=== PATIENT | female | born 1945 | race Caucasian/White ===

== ENCOUNTER → 2022-10-03 11:12 | Outpatient (BNVA) | payer MEDICARE, MEDICAID, SELFPAY | PROVIDERS: PCP Internal Medicine; Visit Provider Internal Medicine | DX: E04.2 Nontoxic multinodular goiter (principal) | CPT/HCPCS: 99202 ==

== ENCOUNTER 2022-10-18 09:26 | Outpatient (REF) | payer MEDICARE, MEDICAID, SELFPAY ==
--- NOTE | ~2022-10-18 | CT_ITS ---
EXAMINATION: CT SOFT TISSUE NECK WITHOUT CONTRAST CLINICAL INFORMATION: Nontoxic multinodular goiter. COMPARISON: None TECHNIQUE: Helical imaging was performed in the axial plane with generation of coronal and sagittal reformatted images. This CT examination was performed using dose optimization techniques as appropriate, variously including the following: *Automated exposure control *Adjustment of mA and/or kV according to patient size (this includes techniques or standardized protocols for targeted exams where dose is matched to indication/reason for exam; i.e. extremities or head) *Use of iterative reconstruction technique DLP: 319 mGy-cm FINDINGS: The left lobe of the thyroid gland appears significantly enlarged related to multiple nodules which appear largely confluent measuring up to 3.6 cm. There is mild substernal extension of the goiter. Scattered calcifications are seen throughout the left lobe of the thyroid gland. The right lobe of the thyroid gland is unremarkable. No inflammation is seen within the perithyroidal tissues. There is mild flattening of the left aspect of the trachea with mild rightward deviation but no significant luminal compression. The pharyngeal and laryngeal contours are within normal limits. The parotid and submandibular glands appear normal. No enlarged or suspicious appearing cervical chain lymph nodes are seen. The upper lungs are clear. Bilateral breast implants are noted. Multilevel degenerative changes are seen within the spine. Moderate to severe spinal canal stenosis is seen at the C6-C7 level. There is no acute intracranial abnormality. CT/CT soft tissue neck wo IV con IMPRESSION: 1. Enlarged left lobe of the thyroid gland related to multiple nodules measuring up to 3.6 cm. Ultrasound is recommended if not already performed. Mild substernal extension of the goiter. Mild flattening of the left aspect of the trachea with mild rightward deviation but no significant luminal compression. No suspicious adenopathy in the neck. 2. Incidentally noted moderate to severe spinal canal stenosis at the C6-C7 level.
== END 2022-10-18 09:27 | disposition home or self-care (01) ==
LOC: HO.CT 09:26
PROVIDERS: PCP Internal Medicine; Visit Provider Internal Medicine
DX: E04.2 Nontoxic multinodular goiter (principal)
CPT/HCPCS: 70490

== ENCOUNTER 2023-01-17 11:05 | Outpatient (REF) | payer MEDICARE, MEDICAID, SELFPAY ==
--- NOTE | 2023-01-17 11:29 | PM.OP ---
Brief Operative Note Date of Service: 01/17/23 Pre-op diagnosis: Multinodular Thyroid Procedure: This is doctor Inna Lyles. This is an ultrasound-guided fine-needle aspiration report. Indication: Multinodular Thyroid Porcedure: Procedure was explained to the patient. Alternatives, the risk and benefits were discussed. Written consent was obtained. A time-out was also obtained. After sterile preparation, 1 ml of 1% lidocaine solution was applied subcutaneously for anesthetic effect. Then Fine-needle aspiration of a left lower pole 4.4 cm thyroid nodule was performed using direct ultrasound guidance to confirm accurate needle placement. Four aspirations were made using 27 gauge needles. Samples were submitted for cytology. 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 The patient tolerated the procedure well. Aftercare instructions were provided. Impression: Uncomplicated fine needle aspiration biopsy of a left lower pole 4.4 cm thyroid nodule under ultrasound guidance. Surgeon: Inna Lyles, DO Was an Patient Services Technician used for this Procedure?: No Estimated blood loss (mL): 0
[2023-01-17] MEDS: Lidocaine HCl 1 % MPF 5 ML VIAL SUBCUT (11:59)
== END 2023-01-17 11:06 | disposition home or self-care (01) ==
LOC: HO.US 11:05
PROVIDERS: PCP Internal Medicine; Visit Provider Internal Medicine
DX: E04.2 Nontoxic multinodular goiter (principal)
CPT/HCPCS: 10005; 88172; 88173; 88177

== ENCOUNTER 2023-02-14 15:04 | Outpatient (REF) | payer MEDICARE, MEDICAID, SELFPAY ==
[2023-02-14 16:58] LABS: Albumin Level 4.4 g/dL (3.5-5.0); Calcium 9.8 mg/dL (8.4-10.2)
[2023-02-14 17:20] LABS: Free T4 (Free Thyroxine) 1.04 ng/dL (0.71-1.85); Vitamin D 25-OH Total 35.5 ng/mL (>30)
[2023-02-18 15:24] LABS: PTHI 60 pg/mL (16-77)
== END 2023-02-14 15:05 | disposition home or self-care (01) ==
LOC: HO.LAB 15:04
PROVIDERS: PCP Internal Medicine; Visit Provider Internal Medicine
DX: E04.2 Nontoxic multinodular goiter (principal); E55.9 Vitamin D deficiency, unspecified; Z71.2 Person consulting for explanation of examination or test findings; Z79.899 Other long term (current) drug therapy
CPT/HCPCS: 36415; 82040; 82306; 82310; 83970; 84439; 84443; 99212

== ENCOUNTER 2023-11-04 08:53 | Outpatient (AMB) | payer MEDICARE, MEDICAID, SELFPAY ==
[2023-11-04 09:00] VITALS: BP 126/46; PULSE 54; BMI 25.6
--- NOTE | 2023-11-04 09:00 | MHC.OFFVIS ---
Intake Vital Signs 11/04/23 09:00 Height 5 ft 4.5 in Weight 151 lb 7.321 oz BMI 25.6 BP 126/46 L Blood Pressure Location Lt brachial Position Sitting Pulse 54 Pulse Source Pulse Oximeter Intake Visit Reasons: F/U NTMNG Intake Note: Patient presents today for NTMNG follow up, last seen by Dr. Bullock on 02/14/2023. Patient had surgery for left thyroid lobectomy on 09/17/[address] Albert. Clinical Documentation Nurse Required: No Accompanied by: Self / Same As Patient Allergies No Known Allergies Allergy (Verified 11/04/23 09:05) Medication List - Last Reconciled 11/04/23 by Merlin Patel MD alendronate 70 mg PO QWEEK amitriptyline 50 mg PO BEDTIME atorvastatin 80 mg PO DAILY lamotrigine 25 mg PO DAILY losartan 50 mg PO DAILY omeprazole 20 mg PO DAILY valacyclovir 500 mg PO QAM HPI HPI Comments History of Present Illness Details 78 YO Female with a PMHx of a NTMNG who is seen in F/U. The patient last saw Dr. Bullock on 02/14/2023 She has a longstanding history of a NTMNG and was previously followed by Dr. Sosa in [place], [place]. She had an FNA biopsy many years ago (over 8) but she does not remember which nodule. She reports this was benign. She has since developed hoarseness of her voice, but otherwise denies any compressive symptoms. She had a CT of the neck which revealed a large L lobe of the thyroid extending into the mediastinum with mass effect on the trachea. 01/17/2023 she underwent FNA biopsy of her 4.4 cm L lobe thyroid nodule with benign cytology. She denies any symptoms of hyper or hypothyroidism. She has a daughter with a thyroid issue, but does not know what type. She denies any history of head or neck irradiation. She does have a history of breast cancer, but did not have radiation for this. She denies any known family history of thyroid cancer. CT Neck: 10/18/2022 FINDINGS: The left lobe of the thyroid gland appears significantly enlarged related to multiple nodules which appear largely confluent measuring up to 3.6 cm. There is mild substernal extension of the goiter. Scattered calcifications are seen throughout the left lobe of the thyroid gland. The right lobe of the thyroid gland is unremarkable. No inflammation is seen within the perithyroidal tissues. There is mild flattening of the left aspect of the trachea with mild rightward deviation but no significant luminal compression. The pharyngeal and laryngeal contours are within normal limits. The parotid and submandibular glands appear normal. No enlarged or suspicious appearing cervical chain lymph nodes are seen. The upper lungs are clear. Bilateral breast implants are noted. Multilevel degenerative changes are seen within the spine. Moderate to severe spinal canal stenosis is seen at the C6-C7 level. There is no acute intracranial abnormality. Labs: No pertinent labs to review She is status post left lobectomy with benign pathology. Had labs done in [facility] Medical History Vitamin D deficiency Multinodular thyroid Surgical History (Updated 10/25/23 @ 10:12 by JIAN Cortés) History of lobectomy of thyroid Hx of breast implant Hx of mastectomy Hx of tonsillectomy Family History Mother Diabetes mellitus Mother Alzheimer disease Social History Alcohol intake: current Alcohol intake frequency: 0-2 drinks per day Patient Tobacco Use Status: Former Tobacco user Quit Date: 2015 Physical Exam Const Other: Healing scar status post left lobectomy. Right lobe is without the presence of any palpable nodules Assessment & Plan Assessment & Plan (1) Multinodular thyroid: Code(s): E04.2 - Nontoxic multinodular goiter Plan: This is a 78-year-old white female with a history of left substernal goiter status post left lobectomy in 09/2023 with benign pathology. Appears to be clinically euthyroid. Plan is to check TSH and free T4. If above is normal, patient returned to the care of her primary care provider and back to endocrinology as needed Coding Level of Care Code Est Pt Level 3 (53139) Diagnoses Multinodular thyroid E04.2
== END 2023-11-04 09:19 | disposition home or self-care (01) ==
PROVIDERS: PCP Internal Medicine; Visit Provider Internal Medicine Endocrinology, Diabetes & Metabolism
DX: E04.2 Nontoxic multinodular goiter (principal)
CPT/HCPCS: 99213

== ENCOUNTER → 2023-11-04 08:53 | Outpatient (BNVA) | payer MEDICARE, MEDICAID, SELFPAY | PROVIDERS: Visit Provider Internal Medicine Endocrinology, Diabetes & Metabolism | DX: E04.2 Nontoxic multinodular goiter (principal) | CPT/HCPCS: 99212 ==